=== PATIENT | female | born 1990 | race Caucasian/White ===

== ENCOUNTER 2023-09-17 20:34 | Emergency (ER) | payer MEDICAID, SELFPAY ==
[2023-09-17] VITALS (8 sets, daily range): BP systolic 103–148; BP diastolic 58–95; PULSE 70–95; RESP 18; TEMP 36.8; O2SAT 97–100; BMI 25.0
[2023-09-17 21:13] LABS: Alanine Aminotransferase 19 U/L (12-78); Albumin Level 4.8 g/dl (3.5-5.0); Albumin/Globulin Ratio 1.5 (1.1-1.8); Alkaline Phosphatase 67 U/L (38-126); Anion Gap 11.8 mEq/L (5-15); Aspartate Amino Transferase 26 U/L (14-36); Bilirubin,Total 0.4 mg/dl (0.2-1.3); Blood Urea Nitrogen 15 mg/dl (7-17); Calcium 9.9 mg/dl (8.4-10.2); Carbon Dioxide 28 mmol/L (22.0-30.0); Chloride 105 mmol/L (98-107); Creatinine Clearance Estimated 94 mL/min (50-200); Estimated Glomerular Filt Rate 71 ml/min (>60); GFR (African American) 86 ML/MIN (>60); Globulin 3.3 g/dL (1.3-3.2); Glucose 111 mg/dl (74-100); Potassium 3.8 mmoL/L (3.5-5.1); Sodium 141 mmol/L (136-145); Total Protein,Serum 8.1 g/dl (6.3-8.2)
[2023-09-17 21:18] LABS: Basophils # 0.1 K/mm3 (0-0.2); Basophils % 0.4 % (0.1-2.0); Eosinophils # 0.2 K/mm3 (0.0-0.4); Eosinophils % 1.6 % (0.1-12.0); Hematocrit 43.1 % (37.0-47.0); Hemoglobin 14.8 g/dL (12.2-16.2); Lymphocytes # 2.5 K/mm3 (0.7-4.5); Lymphocytes % 18.4 % (10-50); Mean Corpuscular HGB Conc 34.3 g/dL (31.8-35.4); Mean Corpuscular Hemoglobin 30.3 pg (27.0-31.2); Mean Corpuscular Volume 88.2 fl (81-99); Mean Platelet Volume 9.3 fl (7.4-10.4); Monocytes # 0.6 K/mm3 (0.1-1.0); Monocytes % 4.1 % (1.7-9.3); Neutrophils # 10.3 K/mm3 (1.8-7.8); Neutrophils % 75.5 % (37.0-80.0); Platelet Count 256 K/mm3 (142-424); Red Blood Count 4.89 M/mm3 (4.20-5.40); Red Cell Distribution Width 12.7 % (11.5-17.5); White Blood Count 13.6 K/mm3 (4.8-10.8)
[2023-09-17 21:32] LABS: Microscopic, Urine URINE MICROSCOPIC (MICROSCOPIC)
[2023-09-17 21:35] LABS: Appearance,Urine CLEAR (Clear); Bilirubin,Urine Negative (Negative); Blood, Urine 1+ (Negative); Color,Urine YELLOW (Yellow); Glucose,Urine (UA) Negative (Negative); Ketones,Urine Negative (Negative); Leukocyte Esterase,Urine Negative (Negative); Nitrate,Urine Negative (Negative); Protein,Urine Negative (Negative); Specific Gravity, Urine 1.015 (1.005-1.030); Urobilinogen,Urine 0.2 EU/dl (0.2)
[2023-09-17 21:38] LABS: Urine Pregnancy, HCG Qual. Negative (Negative)
[2023-09-17] MEDS: PANTOPRAZOLE 40MG VIAL 40 MG IV (21:49)
[2023-09-17] MEDS: BELLADONNA ALKALOIDS 60 ML ML PO (21:49)
[2023-09-17 21:50] LABS: Bacteria,Urine Trace /lpf; Squamous Epithelial Cell,Urine Occasional #/hpf (0-5)
[2023-09-17 21:56] LABS: Lipase 84 U/L (23-300)
--- NOTE | 2023-09-17 21:57 | ED_ITS ---
Discharge Plan Disposition Patient Disposition: Home, Self-Care Prescriptions Prescriptions: New esomeprazole magnesium 20 mg capsule,delayed release(DR/EC) 40 mg PO DAILY 28 Days Qty: 56 0RF Referrals Follow up/Referrals: Wilma Farah PA [Primary Care Provider] - See instructions Activity Restrictions/Add. Instructions Additional Instructions/Restrictions: Call your family doctor to establish care for this visit to the emergency department and schedule follow-up within 48 hours to ensure improvement. If you have any worsening of your condition or any other concerning signs or symptoms, return to the emergency department or your primary care doctor for further evaluation. [facility] [address] [place] [address] Clinical Impressions Clinical Impression: Abdominal pain Instructions Patient Instructions: DI for Acute Abdominal Pain Discharge ED Provider: Sivakumar Moran General Adult HPI General Chief complaint: Abdominal Pain Stated complaint: abd pain radiating to back, nausea Time Seen by Provider: 09/17/23 20:38 Mode of Arrival: Ambulatory Source of Information: Patient Limitations: No Limitations Description of Symptoms (Recalled from ER Triage Doc. by RN): Patient has been having upper abdominal cramps for that last two months that has progressively gotten worse over the last few days , states the pain starts in bilateral upper abdomen and radiates to back, starts to feel nauseous and dry heaves then the pain subsides for a little before returning. has went to her PCP in august but no changes were made. History of Present Illness HPI narrative: 33-year-old female no relevant medical history presenting with abdominal cramping. Patient states this has been going on for couple months. 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 Is gotten worse since that time. Patient denies vomiting, but does have nausea and intermittent diarrhea that is nonbloody. No fevers or chills. Has not been taking any medications or noticed anything that makes it better other than lying on her right side. Laying on her left side seems to make it worse. No family history of GI illnesses, malabsorption, or any other concerns. Has not tried any diet modification to try to help. Related Data Previous Rx's Medication Instructions Recorded esomeprazole magnesium 20 mg 40 mg PO DAILY 28 days #56 caps 09/17/23 capsule,delayed release Allergies Allergy/AdvReac Type Severity Reaction Status Date / Time No Known Allergies Allergy Verified 09/17/23 21:02 [facility] Disclaimer: The information contained in this section may have been updated after the patient was seen, as this information can be updated by other users. Social History Smoking Status: Never smoker alcohol intake: never current occupational status: employed Travel in the last 8 weeks: None ROS Obtained: Yes All systems reviewed & no additional complaints except as documented Physical Exam General General appearance: alert and in no apparent distress Head Head exam: atraumatic and normocephalic Eye Eye exam: Present normal appearance, PERRL and EOMI ENT ENT exam: Present mucous membranes moist Neck Neck exam: Present normal inspection, full ROM and trachea midline Respiratory Respiratory exam: Absent respiratory distress, wheezes, stridor, accessory muscle use or prolonged expiratory phase Cardiovascular Cardiovascular exam: Present normal rhythm Abdominal Exam Abdominal exam: Present soft; Absent distention, tenderness, guarding, rebound or rigidity Extremities Exam Extremities exam: Absent edema Neurological Exam Neurological exam: Present alert, oriented X3, CN II-XII intact and normal gait; Absent motor sensory deficit Skin Skin exam: Present warm and dry; Absent diaphoresis or erythema Medical Decision Making Medical Records Medical records reviewed: Yes I reviewed the patient's medical records. Myke Inquiry Pt receiving controlled substance: No Myke was queried for this patient: No Vital Signs: 09/17/23 20:51 09/17/23 21:00 09/17/23 21:17 Temperature 98.3 F Temperature Source Oral Pulse Rate 94 H 95 H Pulse Rate [Left Radial] 94 H Respiratory Rate 18 Blood Pressure 148/90 H Blood Pressure [Right Arm] 141/95 H Blood Pressure Mean [Right Arm] 110 02 Sat by Pulse Oximetry 100 97 98 Oxygen Delivery Method Room Air 09/17/23 21:30 09/17/23 22:00 09/17/23 22:30 Temperature Temperature Source Pulse Rate 90 83 70 Pulse Rate [Left Radial] Respiratory Rate Blood Pressure 134/85 131/86 121/77 Blood Pressure [Right Arm] Blood Pressure Mean [Right Arm] 02 Sat by Pulse Oximetry 97 97 97 Oxygen Delivery Method 09/17/23 23:00 Temperature Temperature Source Pulse Rate 85 Pulse Rate [Left Radial] Respiratory Rate Blood Pressure 103/60 L Blood Pressure [Right Arm] Blood Pressure Mean [Right Arm] 02 Sat by Pulse Oximetry 99 Oxygen Delivery Method Lab Data Lab Results 09/17/23 20:48: WBC 13.6 H, RBC 4.89, Hgb 14.8, Hct 43.1, MCV 88.2, MCH 30.3, MCHC 34.3, RDW 12.7, Plt Count 256, MPV 9.3, Neut % (Auto) 75.5, Lymph % (Auto) 18.4, [place] % (Auto) 4.1, Eos % (Auto) 1.6, Baso % (Auto) 0.4, Neut # (Auto) 10.3 H, Lymph # (Auto) 2.5, [place] # (Auto) 0.6, Eos # (Auto) 0.2, Baso # (Auto) 0.1, ESR 16, Sodium 141, Potassium 3.8, Chloride 105, Carbon Dioxide 28, Anion Gap 11.8, BUN 15, Creatinine 0.90, Estimated Creat Clear 94, Estimated GFR 71, Est GFR ( Amer) 86, Glucose 111 H, Calcium 9.9, Total Bilirubin 0.4, AST 26, ALT 19, Alkaline Phosphatase 67, C-Reactive Protein 16.2 H, Total Protein 8.1, Albumin 4.8, Globulin 3.3 H, Albumin/Globulin Ratio 1.5, Lipase 84, HCG, Quant < 2 09/17/23 21:20: Urine Color Yellow, Urine Appearance Clear, Urine pH 6.0, Ur Specific [place] 1.015, Urine Protein Negative, Urine Glucose (UA) Negative, Urine Ketones Negative, Urine Blood 1+, Urine Nitrate Negative, Urine Bilirubin Negative, Urine Urobilinogen 0.2, Ur Leukocyte Esterase Negative, Urine RBC 5- 10, Urine WBC None, Ur Squamous Epith Cells Occasional, Urine Bacteria Trace, Urine HCG, Qual Negative 09/17/23 20:48 09/17/23 20:48 Orders (Tests/Meds): ED MEDICATIONS Generic Name Dose Route Start Last Admin Trade Name Freq PRN Reason Stop Dose Admin Sodium Chloride 10 ml 09/17/23 21:46 Sodium Chloride 0.9% 10ml Vial IV 10/17/23 21:45 NEEDED PRN dilute protonix Discontinued Medications Generic Name Dose Route Start Last Admin Trade Name Freq PRN Reason Stop Dose Admin Belladonna Alkaloids 60 ml 09/17/23 21:46 09/17/23 21:49 Belladonna Alkaloids 60 Ml Ml PO 09/17/23 21:47 60 ml ONCE ONE Administration Pantoprazole Sodium 40 mg 09/17/23 21:46 09/17/23 21:49 Pantoprazole 40mg Vial IV 09/17/23 21:47 40 mg ONCE ONE Administration ORDERS Category Date Time Status CRP [C-Reactive Protein] Stat Lab 09/17/23 20:48 Completed Complete Blood Count Auto Diff Stat Lab 09/17/23 20:48 Completed Comprehensive Metabolic Panel Stat Lab 09/17/23 20:48 Completed ESR [Erythrocyte Sedimentation Rate] Stat Lab 09/17/23 20:48 Completed HCG,Quantitative Stat Lab 09/17/23 20:48 Completed Lipase Stat Lab 09/17/23 20:48 Completed Urinalysis and Microscopic Stat Lab 09/17/23 21:20 Completed Urine , HCG Qual. Stat Lab 09/17/23 21:20 Completed Medical Decision Narrative: 33-year-old female no relevant medical history presenting with abdominal cramping. Patient states this has been going on for couple months. 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 Is gotten worse since that time. Patient denies vomiting, but does have nausea and intermittent diarrhea that is nonbloody. No fevers or chills. Has not been taking any medications or noticed anything that makes it better other than lying on her right side. Laying on her left side seems to make it worse. No family history of GI illnesses, malabsorption, or any other concerns. Has not tried any diet modification to try to help. History was obtained via conversation with patient and . On arrival, patient hemodynamically stable, alert, oriented x4, appropriate, GCS 15, moving all extremities spontaneously, pupils equal and reactive to light. Full physical exam performed and significant for well-appearing woman in no acute distress. Abdomen is soft, nontender, nondistended. Right upper quadrant exam negative, right lower quadrant negative. No overlying skin changes. No flank tenderness. Differential includes PUD, gastritis, enteritis, gastroenteritis, pancreatitis, SBO, colitis, diverticulitis, nephrolithiasis, UTI, aortic pathology, mesenteric ischemia, , cholecystitis, appendicitis, hepatitis, among others. Patient was given GI cocktail, Protonix for symptomatic management and correction of underlying abnormalities. Workup independently interpreted and significant for mild leukocytosis 13.6 with mild neutrophilic shift. Nonactionable chemistry, kidney function normal, CRP mildly elevated at 16.2. normal. CT abdomen pelvis was considered, but not deemed necessary. Patient without peritonitic abdomen, normotensive, nontachycardic, unconcerning physical exam and symptoms remitting by my evaluation. On reevaluation, patient states that she is having intermittent pains. Conversation was had with patient regarding CT scan and utility given imaging, duration of symptoms, and ultimately it was decided against. Patient does have follow-up with her family doctor in the next couple of days and is requesting labs. These will be supplied. Patient was given GI follow-up information for outpatient management. He was also given PPI and recommendations for Maalox. Given patient presentation, workup, history, this most likely represents peptic ulcer disease, developing IBD, malabsorption, versus functional abdominal pain, among others. Because patient at baseline without signs or symptoms of clinical decompensation, deemed appropriate for discharge. Results were relayed to patient who voiced understanding and were agreeable to outpatient management and follow up. At the time of discharge the patient was hemodynamically stable, tolerating PO, and mobilizing appropriately. Critical Care Critical Care Time Critical Care Time: No
[2023-09-17 22:01] LABS: C-Reactive Protein 16.2 mg/L (0-4)
[2023-09-17 22:17] LABS: HCG,Quantitative < 2 mIU/ml (0-5.42)
[2023-09-17 22:20] LABS: Erythrocyte Sedimentation Rate 16 mm/hr (0-20)
== END 2023-09-17 23:29 | disposition home or self-care (01) ==
PROVIDERS: Emergency Provider Emergency Medicine; PCP Physician Assistant
DX: R10.9 Unspecified abdominal pain (principal); R11.0 Nausea
CPT/HCPCS: 80053; 81001; 81025; 83690; 84702; 85025; 85651; 86140; 96374; 99284

== ENCOUNTER 2023-11-24 17:07 | Emergency (ER) | payer MEDICAID, SELFPAY ==
[2023-11-24 17:08] VITALS: BP 148/95; PULSE 120; RESP 18; TEMP 37; O2SAT 99; BMI 22.6
[2023-11-24 17:22] VITALS: BMI 22.6
[2023-11-24 17:32] LABS: Basophils # 0.1 K/mm3 (0-0.2); Basophils % 1.1 % (0.1-2.0); Eosinophils # 0.2 K/mm3 (0.0-0.4); Eosinophils % 1.9 % (0.1-12.0); Hematocrit 44.6 % (37.0-47.0); Hemoglobin 15.4 g/dL (12.2-16.2); Lymphocytes # 1.9 K/mm3 (0.7-4.5); Lymphocytes % 20.8 % (10-50); Mean Corpuscular HGB Conc 34.5 g/dL (31.8-35.4); Mean Corpuscular Hemoglobin 30.8 pg (27.0-31.2); Mean Corpuscular Volume 89.5 fl (81-99); Mean Platelet Volume 9.4 fl (7.4-10.4); Monocytes # 0.4 K/mm3 (0.1-1.0); Neutrophils # 6.8 K/mm3 (1.8-7.8); Neutrophils % 72.3 % (37.0-80.0); Platelet Count 248 K/mm3 (142-424); Red Blood Count 4.98 M/mm3 (4.20-5.40); Red Cell Distribution Width 13.3 % (11.5-17.5); White Blood Count 9.3 K/mm3 (4.8-10.8)
[2023-11-24 17:32] LABS: Microscopic, Urine URINE MICROSCOPIC (MICROSCOPIC)
[2023-11-24] MEDS: LACTATED RINGERS 1000ML 1,000 ML 999 ML IV (17:32)
[2023-11-24] MEDS: ONDANSETRON 4MG/2ML VIAL 4 MG IV ×2 (17:33→18:56)
[2023-11-24] MEDS: ACETAMINOPHEN 500MG TAB 1000 MG PO (17:33)
[2023-11-24] MEDS: KETOROLAC 30MG/ML VIAL 15 MG IV ×2 (17:33→18:56)
[2023-11-24 17:34] LABS: Chloride 108 mmol/L (98-107); Potassium 3.6 mmoL/L (3.5-5.1); Sodium 141 mmol/L (136-145)
[2023-11-24 17:36] LABS: Blood Urea Nitrogen 17 mg/dl (7-17); Creatinine Clearance Estimated 98 mL/min (50-200); Estimated Glomerular Filt Rate 82 ml/min (>60); GFR (African American) 99 ML/MIN (>60)
[2023-11-24 17:37] LABS: Alanine Aminotransferase 18 U/L (12-78); Albumin Level 4.7 g/dl (3.5-5.0); Albumin/Globulin Ratio 1.4 (1.1-1.8); Alkaline Phosphatase 54 U/L (38-126); Anion Gap 10.6 mEq/L (5-15); Aspartate Amino Transferase 24 U/L (14-36); Bilirubin,Total 0.6 mg/dl (0.2-1.3); Carbon Dioxide 26 mmol/L (22.0-30.0); Globulin 3.4 g/dL (1.3-3.2); Glucose 125 mg/dl (74-100); Lipase 63 U/L (23-300); Total Protein,Serum 8.1 g/dl (6.3-8.2)
[2023-11-24 17:39] LABS: Appearance,Urine CLEAR (Clear); Bilirubin,Urine Negative (Negative); Blood, Urine Negative (Negative); Color,Urine YELLOW (Yellow); Glucose,Urine (UA) Negative (Negative); Ketones,Urine Negative (Negative); Leukocyte Esterase,Urine Negative (Negative); Nitrate,Urine Negative (Negative); Protein,Urine Negative (Negative); Specific Gravity, Urine <= 1.005 (1.005-1.030); Urobilinogen,Urine 0.2 EU/dl (0.2)
[2023-11-24 17:42] LABS: Urine Pregnancy, HCG Qual. Negative (Negative)
[2023-11-24 18:00] VITALS: BP 126/90; PULSE 76; O2SAT 99
[2023-11-24 18:30] VITALS: BP 130/88; PULSE 74; O2SAT 99
--- NOTE | 2023-11-24 18:40 | PC.NURSE ---
DR CARRERO AT BS FOR PT EVAL
--- NOTE | 2023-11-24 18:48 | PC.NURSE ---
PT RESTING IN BED. NO NEEDS VOICED AT THIS TIME.
--- NOTE | 2023-11-24 18:56 | HMH.EDGENADL ---
Discharge Plan Disposition Patient Disposition: Home, Self-Care Condition: Good Prescriptions Prescriptions: New ketorolac 10 mg tablet 10 mg PO Q6H PRN (Reason: pain) Qty: 20 0RF ondansetron 4 mg tablet,disintegrating 4 mg PO Q8H PRN (Reason: nausea and vomiting) 4 Days Qty: 12 0RF polyethylene glycol 3350 [Miralax] 17 gram/dose powder 17 g PO DAILY Qty: 510 0RF sennosides [Senna Lax] 8.6 mg tablet 8.6 mg PO HS PRN (Reason: constipation) Qty: 30 0RF Referrals Follow up/Referrals: Wilma Farah PA [Primary Care Provider] - See instructions Dragan Baron MD [Staff Physician] - See instructions Activity Restrictions/Add. Instructions Additional Instructions/Restrictions: You were evaluated in the emergency department today. At this time, we feel that your symptoms are related to your gallbladder. Please tow picker your prescriptions at the pharmacy and take them as prescribed. You may also take Tylenol every 4-6 hours as needed for pain. I would call general surgery, Dr. Baron, in the morning to let them know that you were seen here in the emergency department and that your symptoms have been worsening. Return to the emergency department for any new or worsening symptoms. Clinical Impressions Clinical Impression: Symptomatic cholelithiasis, Constipation Instructions Patient Instructions: DI for Gallstones, DI for Constipation, DI for Acute Abdominal Pain Discharge ED Provider: Shaila Walter General Adult HPI General Chief complaint: Abdominal Pain Stated complaint: RT side abd , back pain Time Seen by Provider: 11/24/23 17:11 Mode of Arrival: Ambulatory Source of Information: Patient Limitations: No Limitations Description of Symptoms (Recalled from ER Triage Doc. by RN): Patient presents to ER with complaints of right upper quadrant pain that radiates into right flank. Patient states she has gallstones and is scheduled to have surgery December 03 but the pain is becoming more frequent and she has had multiple attacks since Friday. Patient reports pain 8/10, sharp and radiates to back with frequent nausea. History of Present Illness HPI narrative: This patient is a 33-year-old female with a history of symptomatic cholelithiasis presenting to the emergency department for evaluation with concern for right upper quadrant abdominal pain. Patient reports that she has had gallbladder attacks for some time. She had a CT scan at the end of October in [place] which showed a very large gallstone at the neck of her gallbladder, and she followed up with Dr. Baron who is planning to do cholecystectomy 12/04/2023. She notes that Friday, she had a severe flare of gallbladder issues with right upper quadrant pain, nausea, and vomiting. She states she vomited all night Robert night. Friday and Friday she was better and was able to eat and drink. Today, she had been doing okay until she had part of her grilled chicken wrap that was left over for lunch, which when she started having right upper quadrant pain and nausea again. No vomiting this time. She also notes she has been constipated. No fevers noted. Related Data Previous Rx's Medication Instructions Recorded ketorolac 10 mg tablet 10 mg PO Q6H PRN pain #20 tabs 11/24/23 ondansetron 4 mg disintegrating 4 mg PO Q8H PRN nausea and 11/24/23 tablet vomiting 4 days #12 tabs polyethylene glycol 3350 17 17 g PO DAILY #510 grams 11/24/23 gram/dose oral powder (Miralax) sennosides 8.6 mg tablet (Senna 8.6 mg PO HS PRN constipation #30 11/24/23 Lax) tabs Allergies Allergy/AdvReac Type Severity Reaction Status Date / Time No Known Allergies Allergy Verified 11/12/23 14:25 [facility] Disclaimer: The information contained in this section may have been updated after the patient was seen, as this information can be updated by other users. Surgical History History of History of tonsillectomy and adenoidectomy History of wisdom tooth extraction History of hernia repair Social History Smoking Status: Never smoker alcohol intake: never current occupational status: employed Travel in the last 8 weeks: None ROS Obtained: Yes All systems reviewed & no additional complaints except as documented Physical Exam General General appearance: alert and in no apparent distress Head Head exam: atraumatic and normocephalic Eye Eye exam: Present normal appearance, PERRL and EOMI ENT ENT exam: Present normal exam, normal oropharynx, mucous membranes moist and normal external ear exam Neck Neck exam: Present normal inspection, full ROM and trachea midline; Absent tenderness Chest Chest inspection: Present normal inspection and symmetric chest wall rise; Absent tenderness Respiratory Respiratory exam: Present normal lung sounds bilaterally; Absent respiratory distress, wheezes, stridor or accessory muscle use Cardiovascular Cardiovascular exam: Present regular rate and normal rhythm Abdominal Exam Abdominal exam: Present soft and tenderness (Right upper quadrant); Absent distention, guarding, rebound or rigidity Extremities Exam Extremities exam: Present normal inspection, full ROM and normal capillary refill; Absent tenderness or edema Back Exam Back exam: Present normal inspection and full ROM; Absent tenderness Neurological Exam Neurological exam: Present alert, oriented X3, CN II-XII intact and normal gait; Absent motor sensory deficit Psychiatric Psychiatric exam: Present normal affect and normal mood Skin Skin exam: Present warm and dry Medical Decision Making Medical Records Medical records reviewed: Yes I reviewed the patient's medical records. Myke Inquiry Pt receiving controlled substance: No Vital Signs: 11/24/23 17:08 11/24/23 18:00 11/24/23 18:30 Temperature 98.6 F Temperature Source Oral Pulse Rate 76 74 Pulse Rate [Right] 120 H Respiratory Rate 18 Blood Pressure 126/90 130/88 Blood Pressure [Right Arm] 148/95 H Blood Pressure Mean [Right Arm] 112 Blood Pressure Source [Right Arm] Automatic Cuff 02 Sat by Pulse Oximetry 99 99 99 Oxygen Delivery Method Room Air Room Air Lab Data Lab results reviewed: Yes I reviewed the patient's lab results. Lab Results 11/24/23 17:10: Urine Color Yellow, Urine Appearance Clear, Urine pH 6.0, Ur Specific [place] <= 1.005, Urine Protein Negative, Urine Glucose (UA) Negative, Urine Ketones Negative, Urine Blood Negative, Urine Nitrate Negative, Urine Bilirubin Negative, Urine Urobilinogen 0.2, Ur Leukocyte Esterase Negative, Urine HCG, Qual Negative 11/24/23 17:20: WBC 9.3, RBC 4.98, Hgb 15.4, Hct 44.6, MCV 89.5, MCH 30.8, MCHC 34.5, RDW 13.3, Plt Count 248, MPV 9.4, Neut % (Auto) 72.3, Lymph % (Auto) 20.8, [place] % (Auto) 4.0, Eos % (Auto) 1.9, Baso % (Auto) 1.1, Neut # (Auto) 6.8, Lymph # (Auto) 1.9, [place] # (Auto) 0.4, Eos # (Auto) 0.2, Baso # (Auto) 0.1, Sodium 141, Potassium 3.6, Chloride 108 H, Carbon Dioxide 26, Anion Gap 10.6, BUN 17, Creatinine 0.80, Estimated Creat Clear 98, Estimated GFR 82, Est GFR ( Amer) 99, Glucose 125 H, Calcium 10.0, Total Bilirubin 0.6, AST 24, ALT 18, Alkaline Phosphatase 54, Total Protein 8.1, Albumin 4.7, Globulin 3.4 H, Albumin/Globulin Ratio 1.4, Lipase 63 11/24/23 17:20 11/24/23 17:20 Orders (Tests/Meds): ED MEDICATIONS Generic Name Dose Route Start Last Admin Trade Name Freq PRN Reason Stop Dose Admin Sodium Chloride 10 ml 11/24/23 17:23 Sodium Chloride 0.9% 10ml Flush Syringe IV 12/24/23 17:22 NEEDED PRN Maintain IV Site Discontinued Medications Generic Name Dose Route Start Last Admin Trade Name Freq PRN Reason Stop Dose Admin Acetaminophen 1,000 mg 11/24/23 17:26 11/24/23 17:33 Acetaminophen 500mg Tab PO 11/24/23 17:27 1,000 mg ONCE ONE Administration Lactated Ringer's 1,000 mls @ 999 mls/hr 11/24/23 17:24 11/24/23 17:31 Lactated Ringer's 1000 Ml Bag IV 11/24/23 18:24 Not Given .Q1H1M ONE Lactated Ringer's 1,000 mls @ 999 mls/hr 11/24/23 17:26 11/24/23 17:32 Lactated Ringer's 1000 Ml Bag IV 11/24/23 18:26 999 mls/hr .Q1H1M ONE Administration Ketorolac Tromethamine 15 mg 11/24/23 17:24 11/24/23 17:31 Ketorolac 30mg/Ml Vial IV 11/24/23 17:25 Not Given ONCE ONE Ketorolac Tromethamine 15 mg 11/24/23 17:26 11/24/23 17:33 Ketorolac 30mg/Ml Vial IV 11/24/23 17:27 15 mg ONCE ONE Administration Ketorolac Tromethamine 15 mg 11/24/23 18:53 11/24/23 18:56 Ketorolac 30mg/Ml Vial IV 11/24/23 18:54 15 mg ONCE ONE Administration Ondansetron HCl 4 mg 11/24/23 17:23 11/24/23 17:33 Ondansetron 4mg/2ml Vial IV 11/24/23 17:24 4 mg ONCE ONE Administration Ondansetron HCl 4 mg 11/24/23 18:53 11/24/23 18:56 Ondansetron 4mg/2ml Vial IV 11/24/23 18:54 4 mg ONCE ONE Administration ORDERS Category Date Time Status POCUS Point of Care (ER Only) Stat Exams 11/24/23 17:25 Ordered Complete Blood Count Auto Diff Stat Lab 11/24/23 17:20 Completed Comprehensive Metabolic Panel Stat Lab 11/24/23 17:20 Completed Lipase Stat Lab 11/24/23 17:20 Completed Urinalysis and Microscopic Stat Lab 11/24/23 17:10 Results Urine , HCG Qual. Stat Lab 11/24/23 17:10 Completed Medical Decision Narrative: In summary, this patient is a 33-year-old female presenting to the Emergency Department for evaluation of right upper quadrant abdominal pain. Differential diagnoses considered include but are not limited to symptomatic cholelithiasis, cholecystitis, choledocholithiasis, ascending cholangitis, colitis, constipation. Ruling out the most morbid conditions drove assessment. I reviewed patient's past medical records and noted elevations by general surgery for symptomatic cholelithiasis. On exam, the patient has right upper quadrant tenderness with no rebound or guarding. Vitals are reassuring with exception of mild sinus tachycardia. Workup included CBC, CMP, lipase, and bedside right upper quadrant ultrasound. Patient was given a bolus of IV fluids as well as IV Toradol, acetaminophen, and Zofran for symptomatic improvement. Right upper quadrant ultrasound was performed by myself which demonstrated cholelithiasis without secondary findings concerning for acute cholecystitis. Labs are reassuring with no significant leukocytosis. Patient has no elevation in liver enzymes and has a normal bilirubin. Lipase is also normal. At this time, I had a discussion with the patient who is feeling better. I advised that given that she does not have findings concerning for cholecystitis, there is not really indication at this time for emergent cholecystectomy, however I do feel that this is related to her gallbladder. Constipation also could be contributing to her symptoms given that she has had constipation. Ultimately after shared decision-making, patient elects to go home with prescriptions for Toradol, Zofran, MiraLAX, and senna for symptomatic improvement and to follow-up very closely with her general surgeon. Advised that if her symptoms worsen or she has any new concerns, we are always here and she can return for further evaluation and management to make sure nothing is changed. Patient is agreeable. Strict return precautions were given, and she was discharged after all questions were answered. Procedures Limited Ultrasound Findings:: Limited RUQ ultrasound Indication: Abdominal pain and nausea Identified structures: -Gallbladder -Gallbladder wall -Liver Findings: Sonographic Henriquez sign: Absent Gallstones: Present Sludge: Present Pericholecystic fluid: Absent Maximal GB wall thickness (mm): [normal is </= 3mm] Normal Gallbladder width (cm): [normal is < 4cm] Normal right at the upper limits Gallbladder length (cm): [normal is < 10cm] Right at the upper limits of normal Impression: Cholelithiasis without secondary findings concerning for cholecystitis Images were saved to permanent archive The study was technically adequate CPT 94169-57 This study was performed by me, and I personally interpreted all images/videos. Based on my clinical judgement, these images were adequate and did not necessitate further imaging. Critical Care Critical Care Time Critical Care Time: No
--- NOTE | 2023-11-24 18:59 | PC.NURSE ---
PT AMBULATORY TO BATHROOM
[2023-11-24 19:21] LABS: Squamous Epithelial Cell,Urine Occasional #/hpf (0-5)
[2023-11-24 19:25] VITALS: BP 132/84; PULSE 72; RESP 16; TEMP 37; O2SAT 98
== END 2023-11-24 19:26 | disposition home or self-care (01) ==
PROVIDERS: Emergency Provider Emergency Medicine; PCP Physician Assistant
DX: R10.11 Right upper quadrant pain (principal); R11.2 Nausea with vomiting, unspecified; K80.20 Calculus of gallbladder without cholecystitis without obstruction; K59.00 Constipation, unspecified
CPT/HCPCS: 80053; 81001; 81025; 83690; 85025; 96361; 96374; 96375; 96376; 99285; J2405

== ENCOUNTER 2023-11-28 07:48 | Day surgery (SDC) | payer MEDICAID, SELFPAY ==
[2023-11-27 11:16] VITALS: BMI 23.9
[2023-11-28] VITALS (8 sets, daily range): BP systolic 116–143; BP diastolic 62–103; PULSE 81–117; RESP 14–18; TEMP 36.6–37; O2SAT 98–100
[2023-11-28] MEDS: LACTATED RINGERS 1000ML 1,000 ML 25 ML IV (08:15)
--- NOTE | 2023-11-28 09:07 | EXP.ANES.CKL ---
[facility] Disclaimer: The information contained in this section may have been updated after the patient was seen, as this information can be updated by other users. Surgical History History of History of tonsillectomy and adenoidectomy History of wisdom tooth extraction History of hernia repair Family History Other No significant family history Social History Smoking Status: Never smoker alcohol intake: never substance use type: denies use current occupational status: employed and unemployed Travel in the last 8 weeks: None [facility] Anesthesia Checklist Patient Identification Patient Identification: Verbal (Name & ) Structural Data Admitted From: Home Planned Operative Procedure/s: ivnana gregory Consent for Planned Operative Procedure(s) Verified: Yes NPO Status Verified Time NPO: 00:00 Additional verifications Anesthesia Reactions: No Hx Blood Transfusions: No Airway Assessment Mallampati Score:: Class II C-Spine Mobility Assessed: Yes TMJ Mobility Assessed: Yes Dentition: Good Dentition Neurological Assessment Level of Consciousness: Awake, Alert and Appropriate Anesthesia Plan Anesthesia Risk discussed: Yes Anesthesia Plan: Verified ASA Class: II Anesthesia Type: General
[2023-11-28] MEDS: CEFAZOLIN SODIUM 1 GM in 0.9 % SODIUM CHLORIDE 50 ML IV (09:40)
[2023-11-28] MEDS: LIDOCAINE 1% 20ML MDV 20 ML (09:48)
--- NOTE | 2023-11-28 11:03 | P.OP_ITS ---
Date of procedure: 11/28/23 Pre-op Diagnosis:: Symptomatic cholelithiasis Post-op Diagnosis:: Acute calculus cholecystitis Gallbladder hydrops Procedure performed:: Laparoscopic cholecystectomy Surgeon:: Dragan Baron MD LOGISTICS VICE PRESIDENT:: Ten Howell Anesthesia: GETA Estimated blood loss (mL): 15 Operative findings:: Severe gallbladder distention Hydrops confirmed Severe infundibular thickening Significant pericholecystic fat stranding Dome down approach utilized secondary to above findings Operative note:: After informed consent was obtained, the patient was taken to the operating room and placed in the supine position. General anesthesia was induced and the abdomen was prepped and draped in a sterile fashion. After infiltration with local anesthetic an infraumbilical incision was made. A Veress needle was place d in position. The abdomen was insufflated. A 5 mm optical trocar was placed in position. Under direct visualization, a 12 mm trocar was placed in the subxiphoid position and 2 additional 5 mm trocars were placed in the right upper quadrant. The gallbladder was elevated up and over the liver margin. Severe distention noted. A small otomy was made in the dome of the gallbladder and hydropic fluid was evacuated. Severe infundibular thickening and significant pericholecystic fat stranding also noted. Secondary to these findings, a dome down approach was utilized. The tissue around the cystic duct was carefully dissected. The cystic artery was then identified, controlled with 2 clips, and then transected distal to the clips. Harmonic jenn were then utilized to dissect the gallbladder away from the liver margin. Endoloops (x 3) were utilized to control the thickened infundibulum. Transection above the site was completed with harmonic jenn. The gallbladder was placed in a retrieval bag and removed through the subxiphoid trocar site. The right upper quadrant was thoroughly irrigated. No active bleeding or bile leak was noted. Fascia at the subxiphoid trocar site was reapproximated utilizing 0 Ethibond. The remaining trocars were removed. All wounds were irrigated and skin was closed with 4-0 Monocryl in a mattress fashion to facilitate hemostasis. The patient's anesthetic agents were reversed and extubation was completed prior to transfer to recovery in stable condition. Condition: stable Disposition: PACU Specimens:: Gallbladder Complications:: No immediate
--- NOTE | 2023-11-28 11:10 | P.PNANES_ITS ---
[facility] Anesthesia Record Part I Anesthesia Record I Intake, IV Amount: 1,800 Hydration: Adequate Estimated blood loss (mL): 0 Urine output (mL): 0 Blood Pressure: 140/100 SaO2: 100 Pulse Rate: 111 Airway Patency: Patent Respiratory Rate: 14 Temperature: 98.6 F Patient is:: Awake and Stable Stable to PACU at:: 11:08
--- NOTE | 2023-12-01 08:53 | P.PNANES_ITS ---
[facility] Anesthesia Record Part II Anesthesia Record Part II Discharge Time: 11:28 Destination: Surgical Day Care (OP Surgery) PACU nurse assessment reviewed?: Yes Patient Condition:: Good Anesthesia Complications:: None Swallowing reflex intact?: Yes Airway Patency: Patent Cyanosis?: No Blood Pressure: 135/90 SaO2: 99 Respiratory Rate: 18 Pulse Rate: 117 Temperature: 98.6 F Mental Status: Alert & Oriented Pain level:: 2 Nausea and/or vomitting:: None Intake, IV Amount: 0 Hydration: Adequate
[2023-12-01 08:54] VITALS: BP 135/90; PULSE 117; RESP 18; TEMP 37; O2SAT 99
== END 2023-11-28 12:02 | disposition home or self-care (01) ==
PROVIDERS: PCP Physician Assistant; Visit Provider Surgery
PROC: 0FT44ZZ Resection of Gallbladder, Percutaneous Endoscopic Approach (ICD-10-PCS; CPT 47562; principal; 2023-11-28 09:30)
DX: K80.10 Calculus of gallbladder with chronic cholecystitis without obstruction (principal)
CPT/HCPCS: 47562; 96374; J2405

== ENCOUNTER 2025-02-01 10:24 | Outpatient (CLI) | payer MEDICAID, SELFPAY ==
--- OUTSIDE RECORDS SUMMARY | 2025-02-01 10:27 | XMS_ITS | Data Portability ---
Author Organization [facility] - [place] & [place] [facility] ADMIN Address [address] [place] [address] Care Team Providers Care Real Property Appraiser Name Role Phone MAX CRUZ Primary Care Provider Assessment Encounter Date Assessment Date Assessment LastModified by Organization Details LastModified Time 09/19/2023 09/19/2023 33-year-old female with bloating, epigastric pain/cramping that radiates circumferentiall y, nausea and intermittent emesis: -Will schedule EGD for further evaluation -Continue Nexium 40 mg once daily p.o. x6 weeks. Will send refills. The patient reports she does not want to be on a daily medication. - Take PPI 30 minutes before eating for it to be effective - Will prescribe sucralfate 10mL 4 times daily as needed p.o. for symptom relief - Elevation of head of the bed - Remain upright 2 to 3 hours after eating - Dietary modification: Avoidance of triggers such as fatty foods, caffeine, chocolate, spicy foods, food with high fat content, carbonated beverages, peppermint, acidic and citrus items - Avoidance of tight fitting garments - Promotion of salivation through oral lozenges/chewing gum to neutralize refluxed acid - Avoidance of tobacco and alcohol 4 week follow up Not available 09/19/2023 13:51:08 10/15/2023 10/15/2023 33-year-old female with bloating, epigastric pain/cramping that radiates circumferentiall y, nausea and intermittent emesis: 1) Epigastric pain, abdominal bloating, nausea, vomiting: -Will order CT abdomen/pelvis with IV contrast for further evaluation. -Instructed patient to take simethicone when episode occurs, suspicious for possible gaseous component -Continue Nexium 40 mg once p.o. daily. Refills sent. The patient reports she does not want to be on a daily medication. She may decrease her dosage to 20mg and see if it is still helpful., in an attempt to eventually wean off of the medicaton. - Take womens multivitamin once daily - Take PPI 30 minutes before eating for it to be effective - Will prescribe sucralfate 10mL 4 times daily as needed p.o. for symptom relief - Elevation of head of the bed - Remain upright 2 to 3 hours after eating - Dietary modification: Avoidance of triggers such as fatty foods, caffeine, chocolate, spicy foods, food with high fat content, carbonated beverages, peppermint, acidic and citrus items - Avoidance of tight fitting garments - Promotion of salivation through oral lozenges/chewing gum to neutralize refluxed acid - Avoidance of tobacco and alcohol 2) Fatigue -Womens multivitamin per above, contains vitamin D supplement which could be helpful as well. -CT scan per above -May check vitmain levels at f/u if fatigue not resolved with multivitamin 3) Endometriosis: The patient reports a history of endometriosis -Will refer to filer helper for annual check up. Patient reports history of endometriosis and heavy painful periods. Also reports a history of fertility issues. She would like to see Midwives. Will send referral. 4 week follow up [email or web address] Not available 10/15/2023 11:24:06 Plan of Treatment Reminders Order Date Submit Date Provider Last Modified By Organization Details Last Modified Time Details Appointments None recorded. Lab None recorded. Referral None recorded. Procedures None recorded. Surgeries None recorded. Imaging CT, abdomen + pelvis, w/ contrast [address] (Centralized Scheduling), [address] , [place], [address], 4 15:34:14 Medication Orders esomeprazol e magnesium 40 mg capsule,del ayed release 2023 024 [email or web address] [facility], [address], [place], [address], 4 11:22:26 esomeprazol e magnesium 40 mg capsule,del ayed release 2023 [email or web address] [facility], [address], [address], 4 13:36:01 sucralfate 100 mg/mL oral suspension [address] [facility], [address], [address], 4 13:50:31 Patient TargetsNo targets recorded. Patient InstructionsNo instructions recorded. Reason for Referral None Reported. Results Created Date Observation Date Name Description Value Unit Range Abnormal Flag Note LastModifiedBy Organization Detail LastModifiedTime 10/28/19 24 10/28/2023 CT ABD pel w/ (IV [facility] [address] [place] [address] Phone: Fax: Name: TAMMY ESCOBAR Exam Date: : 989 Age 33 years Gender : F Access ion: [id number] Physic [place]: BESSY RICHARD Facili ty: [facility] Facili ty HSV: Outpat ient Exam: CT ABD PEL W/ (IV ^ ORAL) EXAM: CT ABDOME N AND PELVIS WITH IV CONTRA ST INDICA TION: Abdomi nal pain TECHNI QUE: The patien t was inject ed with IV contra st. Oral contra st was admini stered . Axial images were obtain ed from the lung bases to the pubic symphy sis by comput ed tomogr aphy. This study was perfor med with techni ques to keep radiat ion doses as low as reason ably swapna huddleston, (SHANNAN ). Indivi dualiz ed dose reduct ion techni ques using automa stephanie exposu re contro l or adjust ment of mA and/or kV accord ing to the patien t size were employ ed. COMPAR DONG: None FINDIN GS: LUNG BASES: Clear. LIVER: Grossl y unrema rkable GALLBL ADDER/ BILIAR Y TREE: Cholel ithias is with 1.7 cm gallst one at the gallbl adder neck. Additi onal smalle r stones in the gallbl adder. No eviden ce of acute cholec ystiti s. SPLEEN : No spleno megaly . ADRENA L GLANDS : Unrema rkable . PANCRE : Grossl y unrema rkable KIDNEY S: No stones . No Hydron ephros is. BOWEL: No small bowel dilata tion. No coloni c dilati on. Large amount of coloni c stool. PERITO NEUM/R ETROPE RITONE UM: No free fluid. No free air. LYMPH NODES: No retrop eriton eal adenop athy. No mesent augustus adenop athy. BLADDE R: Unrema rkable REPROD UCTIVE ORGANS : Corpus luteal cyst in the right ovary, otherw ise unrema rkable . VASCUL AR: No aortic aneury sm. No iliac aneury sm. BONES: No suspic ious osseou s lesion . SOFT TISSUE S: Tiny fat-co ntaini ng umbili mendoza hernia IMPRES DANA: No acute pathol ogy 1.7 cm gallst one at the gallbl adder neck. No eviden ce of acute cholec ystiti s. Legall y authen ticate d by CLAUDIA CADE 10-27 12:14: 47 Dictat ed By: Nathaly Shields Transc ribed By: Nathaly Hightower Transc ribed On: 12:14 PM Electr onical ly signed by: Nathaly Shields [facility] Legall y authakosua campbell d by CLAUDIA CADE 10-27 12:14: 47 CC'ed Logic: Orderi ng Provid er: RICHARD BESSY [place] Attend ing Provid er: RICHARD BESSY [place] Referr ing Provid er: RICHARD BESSY ZHENG Admitt ing Provid er: RICHARD BESSY [place] [email or web address] [facility] [address] [facility], [place], [address], 10/28/2023 17:07:34 Result Notes None recorded. Medical Equipment None Reported. Allergies No known drug allergies Medications Name Sig Start Date Stop Date Status Note LastModified by Organization Details LastModified Time ivermectin 3 mg tablet TAKE 4 TABLETS BY MOUTH ONCE DAILY THEN REPEAT IN ONE WEEK 09/19 completed Not Available Not Available Not Available cromolyn 100 mg/5 mL oral concentrate TAKE 5ML IN 2-4 OUNCES OF WATER 15 MINUTES PRIOR TO EATING THREE TIMES A DAY active Not Available Not Available No t Available Carafate 100 mg/mL oral suspension TAKE 10 ML BY MOUTH 4 TIMES DAILY NEEDED active Not Available Not Available No t Available esomeprazole magnesium 40 mg capsule,po yed release Take 1 capsule every day by oral route for 30 days. active Not Available Not Available No t Available hydroxychlor oquine 200 mg tablet TAKE 1 TABLET BY MOUTH ONCE DAILY active Not Available Not Available No t Available Vitals Date Recorded Body height Body mass index (BMI) Body weight Oxygen saturation Oxygen saturation in Arterial blood by Pulse oximetry Body temperature Heart rate Heart rate Systolic blood pressure Diastolic blood pressure Provider Name and Address Organization Details Last Updated DateTime 4 167.64 cm 24.2 kg/m2 11310.8 6 g 99 % 99 % 97.9 [degF] 78 /min 78 /min 123 mm[Hg] 81 mm[Hg] Paramjit Denise [facility] & [place] 4 08:52:37 Date Recorded Body height Body mass index (BMI) Body weight Body temperature Heart rate Oxygen saturation Oxygen saturation in Arterial blood by Pulse oximetry Heart rate Systolic blood pressure Diastolic blood pressure Provider Name and Address Organization Details Last Updated DateTime 4 167.64 cm 24.8 kg/m2 20526.4 3 g 97.8 [degF] 99 /min 99 % 99 % 104 /min 127 mm[Hg] 87 mm[Hg] Khushbu Crain [facility] & [place] 4 10:25:57 Social History Question Answer Notes LastModified by Organizat ion Details LastModified Time Tobacco Smoking Status Never Smoker Paramjit Denise [facility] & [place] 09/19/2023 08:54:02 What Is Your Level Of Caffeine Consumption? Occasional [email or web address] Information not available 09/19/2023 Sex: Unknown Functional Status Question Answer Note LastModified by Organizat ion Details LastModified Time Do you use any illicit or recreational drugs? No [email or web address] Information not available 09/19/2023 What is your level of alcohol consumption? None [email or web address] Information not available 09/19/2023 Mental Status None recorded. Family History Nothing Reported. Medical History No medical history recorded. Gynecological HistoryNo gynecological history recorded. Obstetrics History GPAL:G 0 P 0 0 0 0 Past Encounters Encounter ID Performer Location Encounter Start Date Encounter Closed Date Diagnosis/Indication Diagnosis SNOMED-CT Code Diagnosis ICD10 Code Diagnosis Note [id number] Tamir Egan MD [facility] [address] [address] 09/19/2023 08:40:44 09/19/2023 09:53:40 Epigastric pain 63226680 R10.13 Nausea and vomiting 1691999 R11.2 Abdominal bloating 77793 9008 R14.0 [id number] Tamir Egan MD [facility] [address] [address] 10/15/2023 10:18:36 10/15/2023 11:06:43 Epigastric pain 31351503 R10.13 Nausea and vomiting 1693 1999 R11.2 Abdominal bloating 50905 9008 R14.0 Fatigue 80986217 R53.83 History of endometriosis 3665018059 8106657 Z87.42 Health Concerns Section Related Observation LastModified by Organization Detai ls LastModified Time None Recorded Concern Status LastModified by Organization Details LastModified Time None Recorded Advance Directives Directive None Recorded Payers Insurance Date Sequence Insurance Name Policy Number Policy Maddox Covered Member ID Maddox Member ID Guarantor Name 10/17/2023 1 PASSPORT BY [employer] (MEDICAID REPLACEMENT - HMO) [place] [id number] [place] Notes Date Note Type Note Provider Name and Address Organization Details Recorded Time text/html CURRENT (09/19/23 B. Richard): Ms. Escobar is a 33-year-old female who presents to the clinic today complaining of epigastric pain/cramping that radiates to her back. She reports postprandial bloating which is followed by epigastric cramping that radiates around her back circumferentially, followed by nausea. Sometimes she vomits afterwards, she does feel relief with emesis. She reports this is worse at night. These symptoms began last fall but have increased in frequency within the last couple of months. She has tried Pepto-Bismol and Gas-X and they are not helpful for her symptoms. She did present to [facility] emergency department on Friday for these symptoms. Lab work was unremarkable and lipase was WDL.The patient brought these records with her to the appointment. No records of imaging present. She was discharged on Nexium and reports taking it x1 day. She denies excessive NSAID use, daily alcohol intake, any history of pancreatitis or biliary disorders, or gallbladder issues. MAYUR RICHARD MSN, OTOLARYNGOLOGY TEACHER, TECHNOLOGIST DEVELOPMENT-C [address] [facility], [place], [address], [facility] & [place] 09/19/2023 13:51:46 4 text/html PREVIOUS (09/19/23 Shaun Richard): Ms. Escobar is a 33-year-old female who presents to the clinic today complaining of epigastric pain/cramping that radiates to her back. She reports postprandial bloating which is followed by epigastric cramping that radiates around her back circumferentially, followed by nausea. Sometimes she vomits afterwards, she does feel relief with emesis. She reports this is worse at night. These symptoms began last fall but have increased in frequency within the last couple of months. She has tried Pepto-Bismol and Gas-X and they are not helpful for her symptoms. She did present to [facility] emergency department on Friday for these symptoms. Lab work was unremarkable and lipase was WDL. The patient brought these records with her to the appointment. No records of imaging present. She was discharged on Nexium and reports taking it x1 day. She denies excessive NSAID use, daily alcohol intake, any history of pancreatitis or biliary disorders, or gallbladder issues. CURRENT (10/15/23 Shaun Richard): Ms. Escobar presents to the clinic today for follow-up. She underwent EGD with Dr. Egan on 09/24/23 which was unremarkable. Pathology revealed reactive gastropathy. The patient reports the frequency of her episodes has decreased since taking nexium daily. She did experience two episodes the last two nights, which were relieved by taking a hot bath. She does report increased fatigue. She does have increased burping during these episodes which provides some relief. She has a history of endometriosis and has not seen an OBGYN since her last child was born 9 years ago. She reports regular periods that are painful. She has stopped hydroxychloroquine since her last visit. She denies hematemesis, hematochezia or melena. MAYUR RICHARD MSN, OTOLARYNGOLOGY TEACHER, TECHNOLOGIST DEVELOPMENT-C [address] [facility], [place], [address], [facility] - [place] & [place] 10/15/2023 11:24:11 OBGyn Episode No OBEpisode recorded.
[2025-02-01 11:17] LABS: Hematocrit 38.7 % (37.0-47.0); Hemoglobin 13.3 g/dL (12.2-16.2); Immature Granulocytes % 0.1 %; Mean Corpuscular HGB Conc 34.4 g/dL (31.8-35.4); Mean Corpuscular Hemoglobin 29.7 pg (27.0-31.2); Mean Corpuscular Volume 86.4 fl (81-99); Nucleated Red Blood Cells % 0 %; Platelet Count 217 K/mm3 (142-424); Red Blood Count 4.48 M/mm3 (4.20-5.40); Red Cell Distribution Width-SD 40.6 fL; White Blood Count 6.7 K/mm3 (4.8-10.8)
[2025-02-01 12:22] LABS: Alanine Aminotransferase 15 U/L (12-78); Albumin Level 4.2 g/dl (3.5-5.0); Albumin/Globulin Ratio 1.7 (1.1-1.8); Alkaline Phosphatase 48 U/L (38-126); Anion Gap 12.3 mEq/L (5-15); Aspartate Amino Transferase 18 U/L (14-36); Bilirubin,Total 0.5 mg/dl (0.2-1.3); Blood Urea Nitrogen 12 mg/dl (7-17); Calcium 9.4 mg/dl (8.4-10.2); Carbon Dioxide 27 mmol/L (22.0-30.0); Chloride 103 mmol/L (98-107); Creatinine,Serum 0.80 mg/dl (0.52-1.04); Estimated Glomerular Filt Rate 81 ml/min (>60); GFR (African American) 98 ML/MIN (>60); Globulin 2.5 g/dL (1.3-3.2); Glucose 91 mg/dl (74-100); Potassium 4.3 mmoL/L (3.5-5.1); Sodium 138 mmol/L (136-145); Total Protein,Serum 6.7 g/dl (6.3-8.2)
[2025-02-01 12:29] LABS: Hemoglobin A1C 6.1 % (4.0-6.0)
[2025-02-01 12:37] LABS: 25-OH Vitamin D, Total 75.7 ng/mL (30-100)
[2025-02-01 12:50] LABS: Thyroid Stimulating Hormone 2.07 uIU/mL (0.465-4.68)
[2025-02-02 03:38] LABS: FSH 11.0 mIU/mL (.); LH 8.9 mIU/mL (.); Testosterone,Total 23 ng/dL (8-60)
[2025-02-02 06:27] LABS: Insulin Level Total 13.9 uIU/mL (2.6-24.9)
[2025-02-07 12:28] LABS: Anti Mullerian Hormone (AMH) 0.858 ng/mL (.)
== END 2025-02-01 23:59 | disposition home or self-care (01) ==
LOC: LAB 10:25
PROVIDERS: PCP Physician Assistant; Visit Provider Obstetrics & Gynecology
DX: Z31.9 Encounter for procreative management, unspecified (principal)
CPT/HCPCS: 36415; 80053; 82306; 82397; 82670; 83001; 83002; 83036; 83525; 84144; 84403; 84443; 85025

== ENCOUNTER 2025-02-09 12:24 | Outpatient (CLI) | payer MEDICAID, SELFPAY ==
--- OUTSIDE RECORDS SUMMARY | 2025-02-09 12:28 | XMS_ITS | Data Portability ---
Author Organization [facility] - [place] & [place] [facility] ADMIN Address [address] [place] [address] Care Team Providers Care Digital Forensic Examiner Name Role Phone MAX CRUZ Primary Care [...] tobacco and alcohol 4 week follow up [email or web address] Not available 09/19/2023 13:51:08 10/15/2023 10/15/2023 33-year-old [...] a history of endometriosis -Will refer to neighborhood planner for annual check up. Patient reports history of endometriosis and heavy painful periods. Also reports a history of fertility issues. She would like to see Midwives. Will send referral. 4 week follow up [email or web address] Not available 10/15/2023 11:24:06 Plan of Treatment Reminders Order Date Submit Date Provider Last Modified By Organization Details Last Modified Time Details Appointments None recorded. Lab None recorded. Referral None recorded. Procedures None recorded. Surgeries None recorded. Imaging CT, abdomen + pelvis, w/ contrast [address] (Centralized Scheduling), [address] , [place], [address], 4 15:34:14 Medication Orders esomeprazol e magnesium 40 mg capsule,del ayed release 2023 024 [email or web address] [facility], [address], [place], [address], 4 11:22:26 esomeprazol e magnesium 40 mg capsule,del ayed release 2023 [email or web address] [facility], [address], [address], 4 13:36:01 sucralfate 100 mg/mL oral suspension [address] [facility], [address], [address], 4 13:50:31 Patient TargetsNo targets recorded. Patient InstructionsNo instructions recorded. Reason for Referral None Reported. Results Created Date Observation Date Name Description Value Unit Range Abnormal Flag Note LastModifiedBy Organization Detail LastModifiedTime 10/28/19 24 10/28/2023 CT ABD pel w/ (IV [facility] [address] [place] [address] Phone: Fax: Name: TAMMY ESCOBAR Exam Date: : 989 Age 33 years Gender : F Access ion: [id number] Physic [place]: BESSY RICHARD Facili ty: [facility] Facili ty HSV: Outpat ient Exam: [...] Thank you [facility] Legall y authakosua campbell d by CLAUDIA CADE 10-27 12:14: 47 CC'ed Logic: Orderi ng Provid er: RICHARD BESSY [place] Attend ing Provid er: RICHARD BESSY [place] Referr ing Provid er: RICHARD BESSY ZHENG Admitt ing Provid er: RICHARD BESSY [place] [email or web address] [facility] [address] [facility], [place], [address], 10/28/2023 17:07:34 Result Notes None recorded. Medical [...] Body temperature Heart rate Heart rate Systolic And Diastolic Provider Name and Address Organization Details Last Updated DateTime 4 167.64 cm 24.2 kg/m2 32375.8 6 g 99 % 99 % 97.9 [degF] 78 /min 78 /min 123/81 mm[Hg] Paramjit Denise [facility] & [place] 08:52:37 Date Recorded Body height Body mass index (BMI) Body weight Body temperature Heart rate Oxygen saturation Oxygen saturation in Arterial blood by Pulse oximetry Heart rate Systolic And Diastolic Provider Name and Address Organization Details Last Updated DateTime 4 167.64 cm 24.8 kg/m2 11315.4 3 g 97.8 [degF] 99 /min 99 % 99 % 104 /min 127/87 mm[Hg] Khushbu Crain [facility] & [place] 4 10:25:57 Social History Question Answer Notes LastModified by Organizat ion Details LastModified Time Tobacco Smoking Status Never Smoker Paramjit Denise [facility] & [place] 09/19/2023 08:54:02 What Is Your Level Of Caffeine Consumption? Occasional [email or web address] Information not available 09/19/2023 Sex: Unknown Functional Status Question Answer Note LastModified by Organizat ion Details LastModified Time Do you use any illicit or recreational drugs? No [email or web address] Information not available 09/19/2023 What is your level of alcohol consumption? None [email or web address] Information not available 09/19/2023 Mental Status None recorded. Family History Nothing Reported. Medical History No medical history recorded. Gynecological HistoryNo gynecological history recorded. Obstetrics History GPAL:G 0 P 0 0 0 0 Past Encounters Encounter ID Performer Location Encounter Start Date Encounter Closed Date Diagnosis/Indication Diagnosis SNOMED-CT Code Diagnosis ICD10 Code Diagnosis Note [id number] Tamir Egan MD [facility] [address] [address] 09/19/2023 08:40:44 09/19/2023 09:53:40 Epigastric pain 99213581 R10.13 Nausea and vomiting 1691999 R11.2 Abdominal bloating 40560 9008 R14.0 [id number] Tamir Egan MD [facility] [address] [address] 10/15/2023 10:18:36 10/15/2023 11:06:43 Epigastric pain 39160097 R10.13 Nausea and vomiting 1691999 R11.2 Abdominal bloating 81980 9008 R14.0 Fatigue 57466740 R53.83 History of endometriosis 2076512804 7735180 Z87.42 Health Concerns Section Related Observation LastModified by Organization Detai ls LastModified Time None Recorded Concern Status LastModified by Organization Details LastModified Time None Recorded Advance Directives Directive None Recorded Payers Insurance Date Sequence Insurance Name Policy Number Policy Maddox Covered Member ID Maddox Member ID Guarantor Name 10/17/2023 1 PASSPORT BY [employer] [facility] (MEDICAID REPLACEMENT - HMO) Sandyregina Escobar [id number] [place] Escobar Notes Date Note Type Note Provider Name and Address Organization Details Recorded Time text/html CURRENT (09/19/23 BJanneth Richard): Ms. Escobar is a 33-year-old female [...] for her symptoms. She did present to [facility] emergency department on Friday for these symptoms. Lab work was unremarkable and lipase was WDL.The patient brought these records with her to the appointment. No records of imaging present. She was discharged on Nexium and reports taking it x1 day. She denies excessive NSAID use, daily alcohol intake, any history of pancreatitis or biliary disorders, or gallbladder issues. MAYUR RICHARD MSN, 3D ARTIST, CT TECHNICIAN-C [address] [facility], [place], [address], [place] - [facility] - [place] & [place] 09/19/2023 13:51:46 4 text/html PREVIOUS (09/19/23 Shaun [...] for her symptoms. She did present to [facility] emergency department on Friday for these symptoms. [...] hematemesis, hematochezia or melena. MAYUR RICHARD MSN, 3D ARTIST, CT TECHNICIAN-C [address] [facility], [place], [address], [facility] - [place] - [place] & [place] 10/15/2023 11:24:11 OBGyn Episode No OBEpisode recorded.
--- NOTE | 2025-02-09 12:30 | FL_ITS ---
FINAL REPORT CLINICAL HISTORY: Check Tubes FLUORO TIME 12 SECONDS DAP 91.26 FINDINGS: FLUOROSCOPY LESS THAN 1 HOUR HISTORY: Fluoroscopy guidance. FINDINGS: Fluoroscopic guidance was provided for hysterosalpingography. A total of 12 seconds of fluoroscopy time were used. DAP: 91.26 mGy IMPRESSION: As above. Reviewed, Interpreted and Dictated by Tez Hare MD Transcribed by Renetta Paulino Authenticated and [facility]
[2025-02-09] MEDS: IOPAMIDOL-370 (76%);100ML BOTTLE 20 ML IV (12:59)
--- NOTE | 2025-02-09 13:10 | P.PCN_ITS ---
[facility] Procedure Note Date: 02/09/25 Time: 12:35 Procedure Note:: Patient was positioned in the dorsal lithotomy position. Speculum was inserted. Cervix and vagina was cleansed with Hibiclens. 10 cc of contrast was drawn up into a syringe and attached to the HSG cannula. Contrast was flushed through cannula to remove air bubbles and ensure patency. Cannula was then inserted into the cervix. Fluoroscopy was initiated with 5 cc of contrast injected into the endometrial cavity. Fluoroscopy demonstrated contrast immediately flowing from endometrial cavity through bilateral fallopian tubes revealing patent bilateral fallopian tubes and normal shape of endometrial cavity. Cannula was removed from the cervix. Speculum removed from the vagina. Patient tolerated the procedure well.
== END 2025-02-09 23:59 | disposition home or self-care (01) ==
LOC: RAD 12:25
PROVIDERS: PCP Physician Assistant; Visit Provider Obstetrics & Gynecology
DX: Z31.9 Encounter for procreative management, unspecified (principal); N97.9 Female infertility, unspecified
CPT/HCPCS: 74740; Q9967

== ENCOUNTER 2025-04-20 10:39 | Outpatient (CLI) | payer MEDICAID, SELFPAY ==
[2025-04-20 13:23] LABS: Hemoglobin A1C 5.0 % (4.0-6.0)
[2025-04-21 11:21] LABS: Insulin Level Total 3.1 uIU/mL (2.6-24.9)
== END 2025-04-20 23:59 | disposition home or self-care (01) ==
PROVIDERS: PCP Physician Assistant; Visit Provider Obstetrics & Gynecology
DX: R73.03 Prediabetes (principal); R73.09 Other abnormal glucose; Z31.9 Encounter for procreative management, unspecified
CPT/HCPCS: 36415; 83036; 83525